=== PATIENT | male | born 1950 | race Hispanic/Latino ===

== ENCOUNTER 2024-07-11 13:51 | Inpatient (IN) | payer MEDICARE ==
[~2024-07-11] VITALS: Ht 170.2 cm; Wt 92.6 kg
--- NOTE | 2024-07-11 13:59 | ERN ---
General Chief Complaint: Chest Pain Stated Complaint: CP Time Seen by MD: 13:56 Source: patient History of Present Illness Initial Comments PATIENT IS A 73-YEAR-OLD MALE COMING IN TO BE EVALUATED FOR CHEST PAIN. PATIENT WAS EVALUATED AT PCP AND WAS SENT IN FOR FURTHER EVALUATION CONCERNS WERE THAT PATIENT MIGHT BE HAVING A STEMI. Allergies: Coded Allergies: nickel (Unverified Allergy, Unknown, 07/11/24) ROS Dictation CONSTITUTIONAL: NO CHILLS, NO FEVER, NO WEAKNESS, NO DIAPHORESIS, NO MALAISE. HEAD/FACE: NO SIGNS OF TRAUMA. EENT: NO EYE PAIN, NO BLURRED VISION, NO TEARING, NO DOUBLE VISION, NO EAR PAIN, NO EAR DISCHARGE, NO NOSE PAIN, NO NASAL CONGESTION, NO THROAT PAIN, NO THROAT SWELLING, NO MOUTH PAIN. RESPIRATORY: NO COUGH, NO ORTHOPNEA, NO SOB, NO STRIDOR, NO WHEEZING. CARDIOVASCULAR: NO CHEST PAIN, NO EDEMA, NO PALPITATIONS, NO SYNCOPE. GASTROINTESTINAL/ABDOMINAL: NO ABDOMINAL PAIN, NO CONSTIPATION, NO DIARRHEA, NO NAUSEA, NO VOMITING. GENITOURINARY: NO ABNORMAL DISCHARGE, NO DYSURIA, NO FREQUENT URINATION, NO HEMATURIA. NO COMPLAINTS OF PAIN IN THE GENITALS. MUSCULOSKELETAL: NO BACK PAIN, NO GOUT, NO JOINT PAIN, NO JOINT SWELLING, NO MUSCLE PAIN, NO MUSCLE STIFFNESS, NO NECK PAIN. INTEGUMENTARY: NO CHANGE IN COLOR, NO CHANGE IN HAIR/NAILS, NO DRYNESS, NO LESION, NO LUMPS, NO RASH. NEUROLOGICAL/PSYCH: NO ANXIETY, NOT DEPRESSED, NO EMOTIONAL PROBLEM, NO HEADACHE, NO NUMBNESS, NO PRE-EXISTING DEFICIT, NO HISTORY OF SEIZURES, NO TREMORS, NO WEAKNESS. HEMATOLOGIC/LYMPHATIC: NOT ANEMIC, NO HISTORY OF BLOOD CLOTS, NO APPARENT BLEEDING, NO BRUISING, GLANDS NOT SWOLLEN. ALL SYSTEMS NEGATIVE, EXCEPT NOTED. Physical Exam Physical Exam Dictation VITAL SIGNS: REVIEWED. GENERAL APPEARANCE: ALERT, ORIENTED X3, NO ACUTE DISTRESS, OBESE. HEAD AND FACE: NON-TRAUMATIC. EYES: PERRL, PINK CONJUNCTIVAS, EYELID NO TRAUMA, ANTERIOR CHAMBER CLEAR. EARS: PINNAS INTACT AND NO SIGNS OF TRAUMA OR ERYTHEMA. EAR CANALS CLEAR AND NO DISCHARGE. TMS NO ERYTHEMA. NOSE: NO DISCHARGE, NO BLEEDING. OROPHARYNX: MOUTH NORMAL, TEETH NO CARIES, TONGUE PINK. PHARYNX CLEAR, NO ERYTHEMA. TONSILS NO EXUDATES, NO ABSCESSES NOTED. MUCOUS MEMBRANE MOIST. NECK: SUPPLE, NON-TENDER, NO THYROMEGALY, NO MASSES, NO JVD, NO BRUITS. BREAST: DEFERRED. CHEST: NO TENDERNESS, NO CREPITUS, NO PARADOXICAL MOVEMENT, NO RETRACTIONS. LUNGS: CLEAR, WELL-VENTILATED, SYMMETRIC, NO RALES, NO WHEEZING, NO RHONCHI, NO STRIDOR, GOOD BREATH SOUNDS BILATERALLY. HEART: REGULAR RATE, REGULAR RHYTHM, NO MURMUR, NO GALLOPS. VASCULAR: NO PERIPHERAL EDEMA. ABDOMEN: SOFT, POSITIVE BOWEL SOUNDS, NONDISTENDED, NO GUARDING, NONTENDER, NO REBOUND, NO MASSES NO HEPATOMEGALY, NO SPLENOMEGALY, NO BOCANEGRA'S SIGN, NO HERNIAS. RECTAL: DEFERRED. GENITAL: DEFERRED. NEUROLOGICAL: NORMAL SPEECH, GROSS MOTOR FUNCTION INTACT, GROSS SENSORY FUNCTION INTACT. MUSCULOSKELETAL: NECK NONTENDER, FULL RANGE OF MOTION, BACK NONTENDER, FULL RANGE OF MOTION. EXTREMITIES: NONTENDER, FULL RANGE OF MOTION. SKIN: COLOR PINK, DRY, NO TURGOR, NO RASH, NO LACERATIONS, NO ABRASIONS, NO CONTUSIONS. LYMPHATICS: DEFERRED. Results Laboratory and Microbiology Lab and Micro Result Laboratory Tests Test 07/11/24 14:11 07/11/24 14:30 07/11/24 15:43 White Blood Count 8.3 K/uL (4.8-10.8) Red Blood Count 4.47 MIL/uL (4.50-6.20) L Hemoglobin 14.4 g/dL (14.0-18.0) Hematocrit 43.4 % (42-54) Mean Corpuscular Volume 97.1 fL (79-99) Mean Corpuscular Hemoglobin 32.2 pg (27.0-33.0) Mean Corpuscular Hemoglobin Concent 33.2 g/dL (32.0-36.0) Red Cell Distribution Width 13.2 % (11.0-15.5) Platelet Count 176 K/uL (130-400) Mean Platelet Volume 9.8 fL (7.5-10.5) Immature Granulocyte % (Auto) 0.6 % (0-1) Neutrophils (%) (Auto) 65.0 % (40.0-77.0) Lymphocytes (%) (Auto) 13.4 % (21.0-51.0) L Monocytes (%) (Auto) 11.6 % (3.0-13.0) Eosinophils (%) (Auto) 8.7 % (0.0-8.0) H Basophils (%) (Auto) 0.7 % (0.0-5.0) Neutrophils # (Auto) 5.4 K/uL (1.8-7.7) Lymphocytes # (Auto) 1.1 K/uL (1.0-4.8) Monocytes # (Auto) 1.0 K/uL (0.1-1.0) Eosinophils # (Auto) 0.72 K/uL (0.00-0.70) H Basophils # (Auto) 0.06 K/uL (0.00-0.20) Absolute Immature Granulocyte (auto 0.05 K/uL (0-1) Nucleated Red Blood Cells 0.0 % (0.0-0.19) Prothrombin Time 12.9 SEC (9.6-11.6) H Prothromb Time International Ratio 1.21 (0.85-1.15) H Activated Partial Thromboplast Time 29.5 SEC (26.3-35.5) Sodium Level 135 mmol/L (136-145) L Potassium Level 5.0 mmol/L (3.5-5.1) Chloride Level 102 mmol/L (101-111) Carbon Dioxide Level 28 mmol/L (21-32) Blood Urea Nitrogen 17 mg/dL (7-18) Creatinine 1.0 mg/dL (0.5-1.3) Glomerular Filtration Rate Calc 79 mL/min (>90) Random Glucose 104 mg/dL (70-105) Total Calcium 9.5 mg/dL (8.5-10.1) Magnesium Level 2.20 mg/dL (1.80-2.40) Total Creatine Kinase 54 U/L (21-232) Troponin I High Sensitivity 649 ng/L (4-75) *H 636 ng/L (4-75) *H B-Type Natriuretic Peptide 156 pg/mL (0-100) H Urine Color YELLOW (YELLOW) Urine Appearance CLEAR (CLEAR) Urine pH 6.5 (5.0-8.0) Urine Specific [place] 1.022 (1.001-1.031) Urine Protein NEGATIVE mg/dL (NEGATIVE) Urine Glucose (UA) NEGATIVE mg/dL (NEGATIVE) Urine Ketones NEGATIVE mg/dL (NEGATIVE) Urine Occult Blood NEGATIVE (NEGATIVE) Urine Nitrate NEGATIVE (NEGATIVE) Urine Bilirubin NEGATIVE mg/dL (NEGATIVE) Urine Urobilinogen 0.2 mg/dL (0.2-1.0) Urine Leukocyte Esterase NEGATIVE Paulette/uL Urine Opiates Screen NEGATIVE (NEGATIVE) Urine Barbiturates Screen NEGATIVE (NEGATIVE) Urine Phencyclidine Screen NEGATIVE (NEGATIVE) Urine Amphetamines Screen NEGATIVE (NEGATIVE) Urine Benzodiazepines Screen NEGATIVE (NEGATIVE) Urine Cocaine Screen NEGATIVE (NEGATIVE) Urine Marijuana (THC) Screen NEGATIVE (NEGATIVE) Labs Reviewed?: Yes EKG/XRAY/US/CT/MRI EKG Comment 07/11/2024 TIME 1:51 P.M. VENTRICULAR RATE 72 ATRIAL FIBRILLATION RIGHT BUNDLE-BRANCH BLOCK NO ST WAVE ELEVATION OR DEPRESSION MDM MDM: DIFFERENTIAL DIAGNOSIS: RATIONALE: TESTS CONSIDERED AND ORDERED SECONDARY TO SHARED DECISION MAKING INCLUDE: LABS, ECG AND RADIOLOGY PREVIOUS OUTSIDE RECORDS REVIEWED: OLD ER VISITS. RISK OF COMPLICATION AND/OR MORBIDITY OR MORTALITY OF PATIENT MANAGEMENT: NONE MEDICATIONS-PER MEDICATION RECONCILIATION NEED FOR HOSPITALIZATION: PATIENT DOES MEET CRITERIA FOR HOSPITALIZATION. NEED FOR EMERGENCY MAJOR/MINOR SURGERY: NO THERE ARE NO SOCIAL CONCERNS WITH THIS PATIENT. PRESCRIPTION DRUG MANAGEMENT PRESCRIPTIONS WILL INCLUDE SYMPTOMATIC CARE PATIENT'S PRIOR EXTERNAL MEDICAL RECORDS FROM OTHER ER VISITS WERE REVIEWED BY ME INDICATED. PRIOR TESTING AND RESULTS FROM PREVIOUS VISITS WERE REVIEWED. PRIOR TESTS WERE TAKEN INTO ACCOUNT WITH MEDICAL DECISION MAKING AND RESOURCE UTILIZATION, INDEPENDENT HISTORIAN/HISTORIANS WERE USED TO OBTAIN COMPLETE MEDICAL HISTORY. I INDEPENDENTLY INTERPRETED THE TEST THAT WERE PERFORMED, RESULTS WERE REVIEWED BY ME AND CONSIDERED FINDINGS ON RADIOLOGY IF ORDERED. MEDICAL MANAGEMENT AND EXAMINATION INTERPRETATION DISCUSSIONS WERE HAD BY ME WITH OTHER QUALIFIED HEALTHCARE PROFESSIONALS INDICATED FOR THE PATIENT'S CARE. ED Course Orders Procedure Category Date Status Time Cbc With Differential LAB 07/11/24 Complete 13:56 Prothrombin Time With LAB 07/11/24 Complete INR 13:56 B-Type Natriuretic LAB 07/11/24 Complete Peptide 13:56 Chest 1vw RAD 07/11/24 Resulted 13:56 12 Lead Ekg Tracing- EKG 07/11/24 Complete Technical 13:56 Magnesium LAB 07/11/24 Complete 13:56 Creatine Kinase, Total LAB 07/11/24 Complete 13:56 Troponin I High LAB 07/11/24 Complete Sensitivity 13:56 Urinalysis Profile LAB 07/11/24 Complete 13:56 Partial LAB 07/11/24 Complete Thromboplastin Time 13:56 Basic Metabolic Panel LAB 07/11/24 Complete 13:56 Drug Screen Urine LAB 07/11/24 Complete 13:56 Troponin I High LAB 07/11/24 Complete Sensitivity 15:25 Heparin 5,000 Unit PHA 07/11/24 In Process Vial (Heparin 5,000 U 16:30 Current Medications Medications (Trade) Dose Ordered Sig/Katherine Route PRN Reason Start Time Stop Time Status Last Admin Dose Admin Heparin Sodium (Porcine) (HEParin 5,000 UNIT VIAL) 5,000 unit ONCE SQ 07/11/24 16:30 08/10/24 16:29 Vital Signs Date Time Temp Pulse Resp B/P (MAP) Pulse Ox O2 Delivery O2 Flow Rate FiO2 07/11/24 14:19 97.2 85 18 146/70 99 Room Air* 0 21 07/11/24 13:56 98.6 80 16 135/70 Room Air 0 Critical Care Note Comments Critical Care Procedure Note Authorized and Performed by: me Total critical care time: Approximately 36 minutes Due to a high probability of clinically significant, life threatening deterioration, the patient required my highest level of preparedness to intervene emergently and I personally spent this critical care time directly and personally managing the patient. This critical care time included obtaining a history; examining the patient; pulse oximetry; ordering and review of studies; arranging urgent treatment with development of a management plan; evaluation of patient's response to treatment; frequent reassessment; and, discussions with other providers. This critical care time was performed to assess and manage the high probability of imminent, life-threatening deterioration that could result in multi-organ failure. It was exclusive of separately billable procedures and treating other patients and teaching time. Please see MDM section and the rest of the note for further information on patient assessment and treatment. DX & DISP Disposition: Inpatient Departure Impression: Primary Impression: NSTEMI (non-ST elevated myocardial infarction) Additional Impression: Chest pain Condition: Stable ELICEO MONTEJO MD Jul 11, 2024 13:59
[2024-07-11 14:20] LABS: BASOPHILS # (AUTO) 0.06 K/uL (0.00-0.20); BASOPHILS % (AUTO) 0.7 % (0.0-5.0); EOSINOPHILS # (AUTO) 0.72 K/uL (0.00-0.70); EOSINOPHILS % (AUTO) 8.7 % (0.0-8.0); HEMATOCRIT 43.4 % (42-54); IMMATURE GRANULOCYTE ABSOLUTE 0.05 K/uL (0-1); LYMPHOCYTES # (AUTO) 1.1 K/uL (1.0-4.8); LYMPHOCYTES % (AUTO) 13.4 % (21.0-51.0); MEAN CORPUSCULAR HEMOGLOBIN 32.2 pg (27.0-33.0); MEAN CORPUSCULAR HGB CONC 33.2 g/dL (32.0-36.0); MEAN CORPUSCULAR VOLUME 97.1 fL (79-99); MONOCYTES % (AUTO) 11.6 % (3.0-13.0); NEUTROPHILS # (AUTO) 5.4 K/uL (1.8-7.7); PLATELET COUNT (AUTO) 176 K/uL (130-400); RED BLOOD CELL COUNT(AUTO) 4.47 MIL/uL (4.50-6.20); RED CELL DISTRIBUTION WIDTH 13.2 % (11.0-15.5); WHITE BLOOD COUNT (AUTO) 8.3 K/uL (4.8-10.8)
[2024-07-11 14:38] LABS: B-TYPE NATRIURETIC PEPTIDE 156 pg/mL (0-100)
[2024-07-11 14:43] LABS: APPEARANCE,URINE CLEAR (CLEAR); BILIRUBIN,URINE NEGATIVE (NEGATIVE); COLOR,URINE YELLOW (YELLOW); GLUCOSE, URINE (UA) NEGATIVE (NEGATIVE); KETONES,URINE NEGATIVE (NEGATIVE); LEUKOCYTE ESTERASE ,URINE NEGATIVE Leu/uL (NEGATIVE); NITRATE,URINE NEGATIVE (NEGATIVE); OCCULT BLOOD,URINE NEGATIVE (NEGATIVE); PH,URINE 6.5 (5.0-8.0); PROTEIN,URINE NEGATIVE (NEGATIVE); UROBILINOGEN,URINE 0.2 mg/dL (0.2-1.0)
[2024-07-11 14:44] LABS: ADD UA MICROSCOPIC NO
[2024-07-11 14:44] LABS: INR 1.21 (0.85-1.15); PROTHROMBIN TIME 12.9 SEC (9.6-11.6)
[2024-07-11 14:45] LABS: PARTIAL THROMBOPLASTIN TIME 29.5 SEC (26.3-35.5)
[2024-07-11 14:45] LABS: AMPHET/METH SCREEN,URINE NEGATIVE (NEGATIVE); BARBITURATE SCREEN, URINE NEGATIVE (NEGATIVE); BENZODIAZEPINES SCREEN,URINE NEGATIVE (NEGATIVE); CANNABINOID SCREEN,URINE NEGATIVE (NEGATIVE); COCAINE SCREEN,URINE NEGATIVE (NEGATIVE); OPIATE SCREEN,URINE NEGATIVE (NEGATIVE); PHENCYCLIDINE SCREEN,URINE NEGATIVE (NEGATIVE)
[2024-07-11 14:48] LABS: MAGNESIUM 2.2 mg/dL (1.80-2.40)
--- NOTE | 2024-07-11 14:55 | HMCIMG ---
CHEST 1VW HISTORY: Chest pain COMPARISON: None FINDINGS: A frontal projection of the chest was obtained. No acute pulmonary infiltrates is seen. The heart is normal in size. Prominent interstitial markings are seen. No evidence of aortic calcification is seen. IMPRESSION: 1. No acute pulmonary infiltrate is seen.
--- NOTE | 2024-07-11 15:07 | EKG ---
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
[2024-07-11] MEDS ORDERED: acetaMINOPHEN 325 MG TAB PO PRN (16:30)
[2024-07-11] MEDS ORDERED: ondanSETRON 4MG INJ IVP PRN (16:30)
[2024-07-11] MEDS: HEParin 5,000 UNIT VIAL SQ SCH (16:37)
--- NOTE | 2024-07-11 16:46 | HP ---
[facility] Date of Service: Jul 11, 2024 Time of Service: 16:33 HISTORY OF PRESENT ILLNESS: [ ] THIS IS A 73-YEAR-OLD MALE THAT PRESENTS IN ER WITH CHIEF COMPLAINTS OF CHEST PAIN THAT HAPPENED 3-4 DAYS AGO SEVERITY WAS MODERATE; LOCATION: ACROSS IS CHEST WALL; DECRIBE TIGHTNESS ACROSS HIS CHEST WALL. DENIES SHORTNESS A BREATH DIZZINESS LIGHT HEADINESS. PATIENT REPORTS HE WENT TO PAY A MONITOR: READING SHOWN A FIB RHYTHM, PATIENT REPORTS HE WAS DIAGNOSED OF 10 YEARS AGO HAD ACARDIOVERSION THEREAFTER HES HAS SINUS RHYTHM WITH RATE CONTROLLED WITH MEDICATIONS, PATIENT REPORTS WAS ON AMIODARONE WAS TAKEN OFF SIX MONTHS DUE AGO AND WAS STARTED ON CARVEDILOL 12.5 TWICE A DAY. PATIENT IS A [place] VISITS [facility] THREE MONTHS OUT OF THE YEAR. PAST MEDICAL HISTORY CONGESTIVE HEART FAILURE. PATIENT'S TROPONIN ELEVATED 642 2nd 636 PATIENT GOT A BOLUS OF HEPARIN IN ER. WE WILL RESUME HOME MEDICATIONS CARVEDILOL 12.5 MG P.O. B.I.D. ATORVASTATIN 20 MG AT BEDTIME SPIRONOLACTONE 50 MG P.O. DAILY. the patient was seen and examied with DR Hightower: patient reports no chest pain at present time. we will do further cardiac workup and follow advertising sales representative recommendations. REVIEW OF SYSTEMS CONSTITUTIONAL: Denies fevers, chills, or night sweats. No unintentional weight loss reported. NEUROLOGICAL: Denies headache, amaurosis fugax, motor weakness, sensory deficit, vertigo/spinning sensation, gait abnormalities, or tremors. ENT: No hearing loss, otalgia, otorrhea, rhinitis, rhinorrhea, hoarseness, or sore throat. CARDIOVASCULAR: Denies any exertional angina, dyspnea on exertion, orthopnea, paroxysmal nocturnal dyspnea, palpitations, life-threatening arrhythmias, claudication. PULMONARY: Denies any shortness of breath, cough, phlegm/sputum, hemoptysis, pleuritic chest pain. SLEEP: Denies morning headaches, daytime somnolence or napping. Denies difficulty falling asleep, staying asleep, waking from sleep. Denies knowledge of snoring. GASTROINTESTINAL: Denies any type of dysphagia to either liquids or solids. Denies nausea, vomiting, pyrosis, early satiety, abdominal pain, diarrhea, constipation, or changes in stool consistency or caliber. Denies coffee-ground emesis, hematemesis, hematochezia, or melanotic stools. GENITOURINARY: Denies frequency, urgency, nocturia, hematuria or incontinence (Storage/Irritative symptoms.) Low urinary stream, straining to void, urinary intermittency or hesitancy, splitting of the voiding stream, terminal dribbling. ENDOCRINOLOGIC: Denies polyuria, polydipsia, polyphagia or heat/cold intolerances. HEMATOLOGIC: Denies thrombophilia/previous clots, or coagulopathy/bleeding disorders. ONCOLOGIC: Denies personal history of malignancy. DERMATOLOGIC: Denies rashes or pruritus. PSYCHIATRIC: Denies any suicidal or homicidal ideation. Denies hallucinations. PAST MEDICAL HISTORY: [ ] REFER TO HPI PAST SURGICAL HISTORY: [ ] GASTRIC SLEEVE HAS LOST 70 LB. PAST SOCIAL HISTORY: [ ] EXERCISE ON A DAILY BASIS ABOUT [id number] STEPS PER DAY DENIES SMOKING TOBACCO PRODUCTS DRINKS ALCOHOL ON OCCASIONALLY TWO BEERS DAILY FAMILY HISTORY: [ ] NONCONTRIBUTORY Coded Allergies: nickel (Unverified Allergy, Unknown, 07/11/24) PHYSICAL EXAM GENERAL APPEARANCE: The patient is awake, alert, and oriented, in no acute cardiopulmonary distress. NEUROLOGICAL: Cranial nerves II-XII grossly intact. Motor is 5/5 in bilateral upper and lower extremities proximal to distal. No sensory deficits. HEENT: Face is symmetric. Pupils are equal and reactive. Extraocular movements are intact. NECK: Supple. No JVD. No thyromegaly. No submental, submandibular, pre- /postauricular, occipital or supraclavicular lymphadenopathy. CHEST: Normal chest expansion. No Telemetry. LUNGS: Absence of any rales, rhonchi or any wheezing. CARDIOVASCULAR: Regular. S1 and S2 normal. No appreciable rubs, murmurs or gallops. ABDOMEN: Soft, nontender, and nondistended. There is no rebound, voluntary guarding, or rigidity. : Deferred. No Lee. EXTREMITIES: Non-edematous and not cyanotic. No clubbing. Good capillary refill. SKIN: No skin breakdown. Vital Sign (Last 24 Hours) 07/11/24 14:19 Temp 97.2 Pulse 85 Resp 18 B/P (MAP) 146/70 Pulse Ox 99 O2 Delivery Room Air* O2 Flow Rate 0 FiO2 21 LABS: Laboratory: Test 07/11/24 15:43 07/11/24 14:30 07/11/24 14:11 Range/Units Troponin I High Sensitivity 636 *H 4-75 ng/L Urine Color YELLOW YELLOW Urine Appearance CLEAR CLEAR Urine pH 6.5 5.0-8.0 Urine Specific [place] 1.022 1.001-1.031 Urine Protein NEGATIVE NEGATIVE mg/dL Urine Glucose (UA) NEGATIVE NEGATIVE mg/dL Urine Ketones NEGATIVE NEGATIVE mg/dL Urine Occult Blood NEGATIVE NEGATIVE Urine Nitrate NEGATIVE NEGATIVE Urine Bilirubin NEGATIVE NEGATIVE mg/dL Urine Urobilinogen 0.2 0.2-1.0 mg/dL Urine Leukocyte Esterase NEGATIVE NEGATIVE Paulette/uL Urine Opiates Screen NEGATIVE NEGATIVE Urine Barbiturates Screen NEGATIVE NEGATIVE Urine Phencyclidine Screen NEGATIVE NEGATIVE Urine Amphetamines Screen NEGATIVE NEGATIVE Urine Benzodiazepines Screen NEGATIVE NEGATIVE Urine Cocaine Screen NEGATIVE NEGATIVE Urine Marijuana (THC) Screen NEGATIVE NEGATIVE White Blood Count 8.3 4.8-10.8 K/uL Red Blood Count 4.47 L 4.50-6.20 MIL/uL Hemoglobin 14.4 14.0-18.0 g/dL Hematocrit 43.4 42-54 % Mean Corpuscular Volume 97.1 79-99 fL Mean Corpuscular Hemoglobin 32.2 27.0-33.0 pg Mean Corpuscular Hemoglobin Concent 33.2 32.0-36.0 g/dL Red Cell Distribution Width 13.2 11.0-15.5 % Platelet Count 176 130-400 K/uL Mean Platelet Volume 9.8 7.5-10.5 fL Immature Granulocyte % (Auto) 0.6 0-1 % Neutrophils (%) (Auto) 65.0 40.0-77.0 % Lymphocytes (%) (Auto) 13.4 L 21.0-51.0 % Monocytes (%) (Auto) 11.6 3.0-13.0 % Eosinophils (%) (Auto) 8.7 H 0.0-8.0 % Basophils (%) (Auto) 0.7 0.0-5.0 % Neutrophils # (Auto) 5.4 1.8-7.7 K/uL Lymphocytes # (Auto) 1.1 1.0-4.8 K/uL Monocytes # (Auto) 1.0 0.1-1.0 K/uL Eosinophils # (Auto) 0.72 H 0.00-0.70 K/uL Basophils # (Auto) 0.06 0.00-0.20 K/uL Absolute Immature Granulocyte (auto 0.05 0-1 K/uL Nucleated Red Blood Cells 0.0 0.0-0.19 % Prothrombin Time 12.9 H 9.6-11.6 SEC Prothromb Time International Ratio 1.21 H 0.85-1.15 Activated Partial Thromboplast Time 29.5 26.3-35.5 SEC Sodium Level 135 L 136-145 mmol/L Potassium Level 5.0 3.5-5.1 mmol/L Chloride Level 102 101-111 mmol/L Carbon Dioxide Level 28 21-32 mmol/L Blood Urea Nitrogen 17 7-18 mg/dL Creatinine 1.0 0.5-1.3 mg/dL Glomerular Filtration Rate Calc 79 >90 mL/min Random Glucose 104 70-105 mg/dL Total Calcium 9.5 8.5-10.1 mg/dL Magnesium Level 2.20 1.80-2.40 mg/dL Total Creatine Kinase 54 21-232 U/L B-Type Natriuretic Peptide 156 H 0-100 pg/mL Current Medications Medications (Trade) Dose Ordered Sig/Katherine Route PRN Reason Start Time Stop Time Status Last Admin Dose Admin Heparin Sodium (Porcine) (HEParin 5,000 UNIT VIAL) 5,000 unit ONCE SQ 07/11/24 16:30 08/10/24 16:29 DIAGNOSTICS / RADIOLOGY: [ ] ASSESSMENT: Nstemi POA History afib on no anticoagulation therapy POA chronic problems: chronic CHF cardioversion: 2013 PLAN: admit: PCCU with Tele Consult: advertising sales representative DR Morley Test: Echo to evaluate LV function NSTEMI: IMITATED ACS PROTOCOL ASA 81 MG PO DAILY , ATORVASTATIN 20 MG PO HS AND resumed home medications: Coreg 12.5 MG BID and spirolactone 50 mg po karl fluid restriction: 1.5 liter daily strict I/O and daily weight NITROGLYCERIN 0.4 MG SUB L PRN LABS: CE: X2 , TSH, LIPID PANEL replace electrolytes to keep Mg > 2.0 K+> 4 PRN: MEDICATIONS TYLENOL 650 MG PO EVERY 4 HRS FOR FEVER ZOFRAN 4 MG IV EVERY 6 HRS FOR N/V HYDRALAZINE 5MG IV EVERY 4 HRS SYSTOLIC PRESSURE > 160 SUPPORTIVE MEASURES: DVT PPX, GI PPX ALL QUESTIONS ANSWERED TIME SPENT: > 35 MIN SUPERVISING MD: DR HIGHTOWER C/D ADVANCED CARE PLANNING 1. Which of the following were discussed? Hospice Care - Yes / No Therapeutic options - Yes / No Advance Directives - Yes / No Other discussions - 2. Discussed with who? 3. Voluntary nature of this service was explained to the patient? Yes / No 4. Amount of time spent - 5. Reviewed by Physician? (if this service was performed by NPP) Yes / No ATTESTATION BY PHYSICIAN I have seen and examined the patient. I reviewed the documentation, medical decision making, and treatment plan as noted by the mid-level provider above. I agree with the findings and plan of care. JUAN RAMON HIGHTOWER MD, ELIZABETH NP Jul 11, 2024 16:46
[2024-07-11] MEDS ORDERED: NITROGLYCERIN 0.4 MG SL TAB SL PRN (17:00)
[2024-07-11] MEDS ORDERED: atorVAStatin 10 MG TABLET PO SCH (21:00)
[2024-07-11] MEDS ORDERED: metoPROLOL tartRATE 25 MG TAB PO SCH (21:00)
[2024-07-11] MEDS: FAMOTIDINE 20MG TAB PO SCH (21:07)
[2024-07-11] MEDS: atorVAStatin 10 MG TABLET PO SCH (21:07)
[2024-07-11] MEDS: carVEDIlol 12.5 MG TABLET PO SCH (21:07)
[2024-07-11 21:45] VITALS: O2SAT 98
[2024-07-11 22:08] VITALS: BP 132/74; PULSE 91; RESP 18; TEMP 98.4
[2024-07-12] VITALS (7 sets, daily range): BP systolic 121–139; BP diastolic 65–83; PULSE 65–80; RESP 16–18; TEMP 97.8–98.2; O2SAT 98
[2024-07-12] MEDS ORDERED: SPIR50TA5 PO (05:44)
[2024-07-12] MEDS ORDERED: FURO20TA4 PO (05:44)
[2024-07-12] MEDS ORDERED: ASPI-1197 PO (05:44)
[2024-07-12] MEDS ORDERED: CARV6.25 PO (05:44)
[2024-07-12] MEDS ORDERED: AMIO200T44 PO (05:44)
[2024-07-12] MEDS ORDERED: ATOR20TA65 PO (05:44)
[2024-07-12] MEDS: SPIRONOLACTONE 25 MG TAB PO SCH (08:42)
[2024-07-12] MEDS: ASPIRIN 81MG CHEW TAB PO SCH (08:42)
--- NOTE | 2024-07-12 09:12 | EKG ---
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
--- NOTE | 2024-07-12 09:54 | CONS ---
[facility] CARDIOLOGY CONSULTATION REPORT Cardiology consultation note dictated for Luis Reyez MD Date Patient Seen: Jul 12, 2024 Requesting Physician: Luz Marina Mariee NP Reason for Consultation: NSTEMI History of Present Illness: This is [facility] 73[facility] with a past medical history of hypertension, unknown type of heart failure, paroxysmal atrial fibrillation s/p successful cardioversion approximately 10 years ago, chronic amiodarone treatment but discontinued 6m ago by the patient due to purple discoloration to BUE, cardiac stent to unknown artery greater than 15 years ago, exposure to agent orange in [place] and gastric sleeve surgery who presented to the ED by EMS after visiting the [facility] due to an abnormal EKG. Cardiology has been consulted for NSTEMI. Troponin levels of 649, 636, 637, and 598. No EKG in the chart, new one this morning demonstrated atrial fibrillation with a hr of 90bpm with an IVCD, no acute ischemia present. The patient stated on Thursday07/01/2024, as he rescued his dog from being attacked during their usual nightly walk, he felt adrenaline release as he rescued his dog. As he walked back home, he began to experience chest tightness across his chest. It did not radiate, and was constant with a 8/10 intensity at its max level that did decrease in intensity until bedtime, only accompanying symptom was shortness of breath. He attempted sodium bicarbonate to alleviate his symptoms but it did not help. There were no aggravating or relieving factors. The next morning, he did continue to experience the same chest tightness, but it resolved spontaneously within 30 minutes of waking. No more chest discomfort events since Thursday07/02/2024. Since that event, he has been experiencing intermittent anxiousness so he bought a cardio mobile which diagnosed him with atrial fibrillation. He called his primary meat carrier Dr. Christopher Boogie MD in [place], [place] to inform him of what had occurred and was sent an order to the local [facility] for an EKG. He was sent to the ED by the clinic due to his EKG which is not in the chart as well, he does remember being told he was in atrial fibrillation but there were additional abnormalities they believed needed to be addressed. The patient currently denies chest pain, chest pressure, palpitations, dizziness, dyspnea, diaphoresis, orthopnea, PND, nausea, vomiting, previous MIs, and atrial flutter. The patient states he has been told there was an electrical delay in his EKG before. Past Medical History As per HPI and summarized below Past Surgical History: Dental implants Gastric sleeve Right lower rib biopsy due to sarcoidosis Family History: The patient's mother had a heart murmur. The patient's father had lung cancer. Social History: The patient lives with his . Habits: The patient denies tobacco or illicit drug use but does admit to 2 beers a night. Home Meds: Amiodarone 200 mg daily Aspirin 81 mg daily Atorvastatin 20 mg daily Carvedilol 6.25 mg b.i.d. Spironolactone 50 mg daily Furosemide 20 mg p.o. every12 hours p.r.n. edema Current Meds: Current Medications Medications Dose Ordered Sig/Katherine Start Time Stop Time Status Last Admin Acetaminophen 650 mg Q4H PRN 07/11/24 16:30 08/10/24 16:29 Ondansetron HCl 4 mg Q6H PRN 07/11/24 16:30 08/10/24 16:29 Famotidine 20 mg BID 07/11/24 21:00 08/10/24 20:59 07/12/24 08:42 Aspirin 81 mg DAILY 07/12/24 09:00 08/11/24 08:59 07/12/24 08:42 Nitroglycerin 0.4 mg AD PRN 07/11/24 17:00 08/10/24 16:59 Carvedilol 12.5 mg BID 07/11/24 21:00 08/10/24 20:59 07/12/24 08:42 Spironolactone 50 mg DAILY 07/12/24 09:00 08/11/24 08:59 07/12/24 08:42 Atorvastatin Calcium 20 mg HS 07/12/24 21:00 08/10/24 20:59 Clopidogrel Bisulfate 300 mg ONCE ONCE 07/12/24 10:00 07/12/24 10:01 Clopidogrel Bisulfate 75 mg DAILY 07/13/24 09:00 08/12/24 08:59 Heparin Sodium/ Dextrose 250 ml @ 0 mls/hr PROTOCOL 07/12/24 10:00 08/11/24 09:59 Review of Systems: CONST: No fever, fatigue, or weight changes. EYES: No recent vision problems. ENT: No congestion, ear pain, or sore throat. C/V: No chest pain, palpitations, or edema. RESP: No cough, congestion, wheezing or shortness of breath. GI: No abdominal pain, nausea, vomiting, constipation, or diarrhea. : No incontinence or dysuria. SKIN: No rash. NEURO: No headache, focal numbness or weakness, dizziness, or seizures. PSYCH: No depression or anxiety. HEME: No abnormal bruising or bleeding. LYMPH: No swollen glands. Physical Examination: GENERAL: No acute distress. HEAD: Normal with no signs of head trauma. EYES: PERRLA, EOMI, conjunctiva and sclera normal. ENT: Hearing grossly intact, normal oropharynx. NECK: Supple without JVD. There is no tenderness, lymphadenopathy, or masses. No thyromegaly. Normal carotid upstrokes without bruits. LUNGS: Clear breath sounds bilaterally. No wheezes, or rhonchi. HEART: Irregularly irregular rate and rhythm. 2-3/6 ZACK heard at the 3rd ICS at the [facility] VASC: Peripheral pulses +2 bilaterally. Trace edema to BLE ABD: Bowel sounds normal, soft, nontender, no masses, no organomegaly. No audible bruits. : Not examined LYMPH: No lymphadenopathy noted. EXT: No clubbing, cyanosis or edema. SKIN: No rashes or lesions noted. NEURO: Awake, alert, and oriented x3. No focal sensory or strength deficits noted. Vital Signs (last 8hr) Date Time Temp Pulse Resp B/P (MAP) Pulse Ox O2 Delivery O2 Flow Rate FiO2 07/12/24 08:45 98 Room Air* 0 21 07/12/24 08:42 139/73 07/12/24 08:21 98.1 79 16 139/73 97 Room Air 07/12/24 04:16 98.2 76 18 123/65 96 Room Air Laboratory: Hematology Labs: Test 07/11/24 14:11 Range/Units White Blood Count 8.3 4.8-10.8 K/uL Red Blood Count 4.47 L 4.50-6.20 MIL/uL Hemoglobin 14.4 14.0-18.0 g/dL Hematocrit 43.4 42-54 % Mean Corpuscular Volume 97.1 79-99 fL Mean Corpuscular Hemoglobin 32.2 27.0-33.0 pg Mean Corpuscular Hemoglobin Concent 33.2 32.0-36.0 g/dL Red Cell Distribution Width 13.2 11.0-15.5 % Platelet Count 176 130-400 K/uL Mean Platelet Volume 9.8 7.5-10.5 fL Immature Granulocyte % (Auto) 0.6 0-1 % Neutrophils (%) (Auto) 65.0 40.0-77.0 % Lymphocytes (%) (Auto) 13.4 L 21.0-51.0 % Monocytes (%) (Auto) 11.6 3.0-13.0 % Eosinophils (%) (Auto) 8.7 H 0.0-8.0 % Basophils (%) (Auto) 0.7 0.0-5.0 % Neutrophils # (Auto) 5.4 1.8-7.7 K/uL Lymphocytes # (Auto) 1.1 1.0-4.8 K/uL Monocytes # (Auto) 1.0 0.1-1.0 K/uL Eosinophils # (Auto) 0.72 H 0.00-0.70 K/uL Basophils # (Auto) 0.06 0.00-0.20 K/uL Absolute Immature Granulocyte (auto 0.05 0-1 K/uL Nucleated Red Blood Cells 0.0 0.0-0.19 % Chemistry Labs: Test 07/12/24 03:27 07/11/24 15:43 07/11/24 14:11 Range/Units Troponin I High Sensitivity 598 *H 4-75 ng/L Thyroid Stimulating Hormone (TSH) 0.68 0.36-3.74 uIU/mL Sodium Level 135 L 136-145 mmol/L Potassium Level 5.0 3.5-5.1 mmol/L Chloride Level 102 101-111 mmol/L Carbon Dioxide Level 28 21-32 mmol/L Blood Urea Nitrogen 17 7-18 mg/dL Creatinine 1.0 0.5-1.3 mg/dL Glomerular Filtration Rate Calc 79 >90 mL/min Random Glucose 104 70-105 mg/dL Total Calcium 9.5 8.5-10.1 mg/dL Magnesium Level 2.20 1.80-2.40 mg/dL Total Creatine Kinase 54 21-232 U/L B-Type Natriuretic Peptide 156 H 0-100 pg/mL Coagulation Labs: Test 07/11/24 14:11 Range/Units Prothrombin Time 12.9 H 9.6-11.6 SEC Prothromb Time International Ratio 1.21 H 0.85-1.15 Activated Partial Thromboplast Time 29.5 26.3-35.5 SEC Diagnostics / Radiology: Impression and Plan: NSTEMI HTN Unknown type of heart failure Paroxysmal atrial fibrillation s/p successful cardioversion approximately 10 years ago Chronic amiodarone treatment but discontinued 6m ago by the patient due to purple discoloration to BUE Cardiac stent to unknown artery greater than 15 years ago Exposure to agent orange in [place] Gastric sleeve surgery NSTEMI Troponin levels of 649, 636, 637, and 598 EKG demonstrated atrial fibrillation with a hr of 90bpm with an IVCD, no acute ischemia present The patient stated on Thursday07/01/2024, as he rescued his dog from being at tacked during their usual nightly walk, he felt adrenaline release as he rescued his dog. As he walked back home, he began to experience chest tightness across his chest. It did not radiate, and was constant with a 8/10 intensity at its max level that did decrease in intensity until bedtime, only accompanying symptom was shortness of breath. He attempted sodium bicarbonate to alleviate his symptoms but it did not help. There were no aggravating or relieving factors. The next morning, he did continue to experience the same chest tightness, but it resolved spontaneously within 30 minutes of waking. No more chest discomfort events since Thursday07/02/2024. -Continue Aspirin 81mg daily, Atorvastatin 20mg daily, Carvedilol 6.25mg b.i.d. -Start Clopidogrel 300mg x1, then 75mg daily and a Heparin gtt x 48 hrs -Echocardiogram was done this morning to assess LV function, pending to be read -NPO after midnight, obtain consent for diagnostic left and or right heart catheterization with possible percutaneous transluminal coronary angioplasty and stenting by Dr. Mushtaq Reyez in AM Atrial fibrillation Currently rate controlled with hr in the 80's -Continue carvedilol 6.25mg BID -Continue Heparin gtt to aid in anticoagulation -Initiate oral DOAC prior to discharge [facility] Jul 12, 2024 09:54
[2024-07-12] MEDS: cloPIDOgrel 300MG TAB PO ONE (11:15)
--- NOTE | 2024-07-12 11:33 | PN ---
[facility] PROGRESS NOTE Date of Service: Jul 12, 2024 Time of Service: : SUBJECTIVE: 07/12 the patient has been seen and examined during my rounding, no acute events overnight, comfortably in bed, hemodynamically stable, BP 139/73, heart rate controlled at 79, afebrile, saturating normal on room air. He denies dizziness, no headache, no blurry vision, no chest pain, no shortness a breath, no nausea, no vomiting, no abdominal pain. No family members at bedside during my visit. REVIEW OF SYSTEMS CONSTITUTIONAL: Denies fevers, chills, or night sweats. No unintentional weight loss reported. NEUROLOGICAL: Denies headache, amaurosis fugax, motor weakness, sensory deficit, vertigo/spinning sensation, gait abnormalities, or tremors. ENT: No hearing loss, otalgia, otorrhea, rhinitis, rhinorrhea, hoarseness, or sore throat. CARDIOVASCULAR: Denies any exertional angina, dyspnea on exertion, orthopnea, paroxysmal nocturnal dyspnea, palpitations, life-threatening arrhythmias, claudication. PULMONARY: Denies any shortness of breath, cough, phlegm/sputum, hemoptysis, pleuritic chest pain. SLEEP: Denies morning headaches, daytime somnolence or napping. Denies difficulty falling asleep, staying asleep, waking from sleep. Denies knowledge of snoring. GASTROINTESTINAL: Denies any type of dysphagia to either liquids or solids. Denies nausea, vomiting, pyrosis, early satiety, abdominal pain, diarrhea, constipation, or changes in stool consistency or caliber. Denies coffee-ground emesis, hematemesis, hematochezia, or melanotic stools. GENITOURINARY: Denies frequency, urgency, nocturia, hematuria or incontinence (Storage/Irritative symptoms.) Low urinary stream, straining to void, urinary intermittency or hesitancy, splitting of the voiding stream, terminal dribbling. ENDOCRINOLOGIC: Denies polyuria, polydipsia, polyphagia or heat/cold intolerances. HEMATOLOGIC: Denies thrombophilia/previous clots, or coagulopathy/bleeding disorders. ONCOLOGIC: Denies personal history of malignancy. DERMATOLOGIC: Denies rashes or pruritus. PSYCHIATRIC: Denies any suicidal or homicidal ideation. Denies hallucinations. PHYSICAL EXAM GENERAL APPEARANCE: The patient is awake, alert, and oriented, in no acute cardiopulmonary distress. NEUROLOGICAL: Cranial nerves II-XII grossly intact. Motor is 5/5 in bilateral upper and lower extremities proximal to distal. No sensory deficits. HEENT: Face is symmetric. Pupils are equal and reactive. Extraocular movements are intact. NECK: Supple. No JVD. No thyromegaly. No submental, submandibular, pre- /postauricular, occipital or supraclavicular lymphadenopathy. CHEST: Normal chest expansion. No Telemetry. LUNGS: Absence of any rales, rhonchi or any wheezing. CARDIOVASCULAR: Regular. S1 and S2 normal. No appreciable rubs, murmurs or gallops. ABDOMEN: Soft, nontender, and nondistended. There is no rebound, voluntary guarding, or rigidity. : Deferred. No Lee. EXTREMITIES: Non-edematous and not cyanotic. No clubbing. Good capillary refill. SKIN: No skin breakdown. Vital Signs (last 8hr) Date Time Temp Pulse Resp B/P (MAP) Pulse Ox O2 Delivery O2 Flow Rate FiO2 07/12/24 08:45 98 Room Air* 0 21 07/12/24 08:42 139/73 07/12/24 08:21 98.1 79 16 139/73 97 Room Air 07/12/24 04:16 98.2 76 18 123/65 96 Room Air LABS: Laboratory: Test 07/12/24 10:15 07/12/24 03:27 07/11/24 15:43 07/11/24 14:30 Range/Units Activated Partial Thromboplast Time 29.1 26.3-35.5 SEC Troponin I High Sensitivity 598 *H 4-75 ng/L Thyroid Stimulating Hormone (TSH) 0.68 0.36-3.74 uIU/mL Urine Color YELLOW YELLOW Urine Appearance CLEAR CLEAR Urine pH 6.5 5.0-8.0 Urine Specific [place] 1.022 1.001-1.031 Urine Protein NEGATIVE NEGATIVE mg/dL Urine Glucose (UA) NEGATIVE NEGATIVE mg/dL Urine Ketones NEGATIVE NEGATIVE mg/dL Urine Occult Blood NEGATIVE NEGATIVE Urine Nitrate NEGATIVE NEGATIVE Urine Bilirubin NEGATIVE NEGATIVE mg/dL Urine Urobilinogen 0.2 0.2-1.0 mg/dL Urine Leukocyte Esterase NEGATIVE NEGATIVE Paulette/uL Urine Opiates Screen NEGATIVE NEGATIVE Urine Barbiturates Screen NEGATIVE NEGATIVE Urine Phencyclidine Screen NEGATIVE NEGATIVE Urine Amphetamines Screen NEGATIVE NEGATIVE Urine Benzodiazepines Screen NEGATIVE NEGATIVE Urine Cocaine Screen NEGATIVE NEGATIVE Urine Marijuana (THC) Screen NEGATIVE NEGATIVE Test 07/11/24 14:11 Range/Units White Blood Count 8.3 4.8-10.8 K/uL Red Blood Count 4.47 L 4.50-6.20 MIL/uL Hemoglobin 14.4 14.0-18.0 g/dL Hematocrit 43.4 42-54 % Mean Corpuscular Volume 97.1 79-99 fL Mean Corpuscular Hemoglobin 32.2 27.0-33.0 pg Mean Corpuscular Hemoglobin Concent 33.2 32.0-36.0 g/dL Red Cell Distribution Width 13.2 11.0-15.5 % Platelet Count 176 130-400 K/uL Mean Platelet Volume 9.8 7.5-10.5 fL Immature Granulocyte % (Auto) 0.6 0-1 % Neutrophils (%) (Auto) 65.0 40.0-77.0 % Lymphocytes (%) (Auto) 13.4 L 21.0-51.0 % Monocytes (%) (Auto) 11.6 3.0-13.0 % Eosinophils (%) (Auto) 8.7 H 0.0-8.0 % Basophils (%) (Auto) 0.7 0.0-5.0 % Neutrophils # (Auto) 5.4 1.8-7.7 K/uL Lymphocytes # (Auto) 1.1 1.0-4.8 K/uL Monocytes # (Auto) 1.0 0.1-1.0 K/uL Eosinophils # (Auto) 0.72 H 0.00-0.70 K/uL Basophils # (Auto) 0.06 0.00-0.20 K/uL Absolute Immature Granulocyte (auto 0.05 0-1 K/uL Nucleated Red Blood Cells 0.0 0.0-0.19 % Prothrombin Time 12.9 H 9.6-11.6 SEC Prothromb Time International Ratio 1.21 H 0.85-1.15 Sodium Level 135 L 136-145 mmol/L Potassium Level 5.0 3.5-5.1 mmol/L Chloride Level 102 101-111 mmol/L Carbon Dioxide Level 28 21-32 mmol/L Blood Urea Nitrogen 17 7-18 mg/dL Creatinine 1.0 0.5-1.3 mg/dL Glomerular Filtration Rate Calc 79 >90 mL/min Random Glucose 104 70-105 mg/dL Total Calcium 9.5 8.5-10.1 mg/dL Magnesium Level 2.20 1.80-2.40 mg/dL Total Creatine Kinase 54 21-232 U/L B-Type Natriuretic Peptide 156 H 0-100 pg/mL Current Medications Medications (Trade) Dose Ordered Sig/Katherine Route PRN Reason Start Time Stop Time Status Last Admin Dose Admin Acetaminophen (TYLenol 325MG TAB) 650 mg Q4H PRN PO TEMPERATURE GREATER THAN 101.5 07/11/24 16:30 08/10/24 16:29 Aspirin (Aspirin 81mg Chew Tab) 81 mg DAILY PO 07/12/24 09:00 08/11/24 08:59 07/12/24 08:42 81 MG Atorvastatin Calcium (LIPItor 10MG) 10 mg HS PO 07/11/24 21:00 07/11/24 17:07 DC Atorvastatin Calcium (LIPItor 10MG) 20 mg HS PO 07/11/24 21:00 07/12/24 07:52 DC 07/11/24 21:07 20 MG Atorvastatin Calcium (LIPItor 20MG) 20 mg HS PO 07/12/24 21:00 08/10/24 20:59 Carvedilol (Coreg 12.5MG) 12.5 mg BID PO 07/11/24 21:00 08/10/24 20:59 07/12/24 08:42 12.5 MG Clopidogrel Bisulfate (plaVIX 75MG) 75 mg DAILY PO 07/13/24 09:00 08/12/24 08:59 Famotidine (Pepcid 20mg Tab) 20 mg BID PO 07/11/24 21:00 08/10/24 20:59 07/12/24 08:42 20 MG Heparin Sodium (Porcine) (HEParin 5,000 UNIT VIAL) *calculation based on ACTUAL B... AD PRN IV HEPARIN PROTOCOL 07/12/24 11:30 08/11/24 11:29 Heparin Sodium (Porcine) (HEParin 5,000 UNIT VIAL) 5,000 unit ONCE SQ 07/11/24 16:30 07/12/24 07:51 DC 07/11/24 16:37 5,000 UNIT Heparin Sodium/ Dextrose 250 ml @ 0 mls/hr PROTOCOL IV 07/12/24 10:00 12/5/24 09:59 Metoprolol Tartrate (loprESSOR) 12.5 mg BID PO 07/11/24 21:00 07/11/24 17:07 DC Nitroglycerin (Nitrostat) 0.4 mg AD PRN SL CHEST PAIN 07/11/24 17:00 08/10/24 16:59 Ondansetron HCl (zoFRAN 4MG INJ) 4 mg Q6H PRN IVP NAUSEA/VOMITING 07/11/24 16:30 08/10/24 16:29 Spironolactone (Aldactone 25mg) 50 mg DAILY PO 07/12/24 09:00 08/11/24 08:59 07/12/24 08:42 50 MG DIAGNOSTICS / RADIOLOGY: [ ] CHEST 1VW HISTORY: Chest pain COMPARISON: None FINDINGS: A frontal projection of the chest was obtained. No acute pulmonary infiltrates is seen. The heart is normal in size. Prominent interstitial markings are seen. No evidence of aortic calcification is seen. IMPRESSION: 1. No acute pulmonary infiltrate is seen. ASSESSMENT: Nstemi POA History afib on no anticoagulation therapy POA chronic problems: chronic CHF cardioversion: 2013 PLAN: admit: PCCU with Tele Consult: prototype engineer manager DR Morley Test: Echo to evaluate LV function NSTEMI: IMITATED ACS PROTOCOL ASA 81 MG PO DAILY , ATORVASTATIN 20 MG PO HS AND resumed home medications: Coreg 12.5 MG BID and spirolactone 50 mg po karl fluid restriction: 1.5 liter daily strict I/O and daily weight NITROGLYCERIN 0.4 MG SUB L PRN LABS: CE: X2 , TSH, LIPID PANEL replace electrolytes to keep Mg > 2.0 K+> 4 PRN: MEDICATIONS TYLENOL 650 MG PO EVERY 4 HRS FOR FEVER ZOFRAN 4 MG IV EVERY 6 HRS FOR N/V HYDRALAZINE 5MG IV EVERY 4 HRS SYSTOLIC PRESSURE > 160 SUPPORTIVE MEASURES: DVT PPX, GI PPX Disposition: The patient remains admitted to the progressive care unit, continue ekg monitor. Patient to be started on heparin drip. Cardiology input noted and appreciated, echocardiogram requested. Further recommendations in terms of possible left heart catheterization to follow echo results. Follow a.m. labs. Plan of action discussed with the patient, all questions answered, agreed and understood the information provided. Total PCU time spent greater than 30 minutes. JUAN RAMON HIGHTOWER MD Jul 12, 2024 11:33
[2024-07-12] MEDS: HEParin 5,000 UNIT VIAL IV PRN (11:36)
[2024-07-12] MEDS: HEParin 25,000 UNITS/250ML D5W 250 ML IV SCH (11:36)
--- NOTE | 2024-07-12 11:37 | EKG ---
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 : 1950 Requested By: JUAN RAMON HIGHTOWER Order Number: [id number] Reading MD: Thomas Cherry Measurements Intervals Parkin Rate: 90 P: 0 PA: 0 QRS: -97 QRSD: 174 T: 79 QT: 448 QTc: 549 Interpretive Statements Atrial fibrillation IVCD, consider RBBB ST elevation secondary to IVCD Compared to ECG 07/11/2024 21:31:27 Intraventricular conduction delay now present Sinus rhythm no longer present Left anterior fascicular block no longer present Myocardial infarct finding no longer present Prolonged QT interval no longer present ST (T wave) deviation still present Electronically Signed On 07-14-2024 18:31:47 SKIN CARE CONSULTANT by Thomas Cherry Please click the below link to view image of tracing.
[2024-07-12] MEDS: atorVAStatin 20 MG TABLET PO SCH (20:36)
[2024-07-13] VITALS (13 sets, daily range): BP systolic 114–140; BP diastolic 70–94; PULSE 64–99; RESP 16–18; TEMP 97.8–98.7; O2SAT 96–97
[2024-07-13 05:35] LABS: HEMATOCRIT 44.6 % (42-54); MEAN CORPUSCULAR HEMOGLOBIN 31.9 pg (27.0-33.0); MEAN CORPUSCULAR VOLUME 96.7 fL (79-99); RED BLOOD CELL COUNT(AUTO) 4.61 MIL/uL (4.50-6.20); RED CELL DISTRIBUTION WIDTH 13.4 % (11.0-15.5); WHITE BLOOD COUNT (AUTO) 9.8 K/uL (4.8-10.8)
[2024-07-13 05:51] LABS: ALBUMIN 3.2 g/dL (3.5-5.0); BILIRUBIN,TOTAL 1.2 mg/dL (0.2-1.0); CREATININE 0.9 mg/dL (0.5-1.3); POTASSIUM 4.1 mmol/L (3.5-5.1); TOTAL PROTEIN, SERUM 6.2 g/dL (6.0-8.3)
[2024-07-13] MEDS: cloPIDOgrel 75MG TAB PO SCH (08:53)
[2024-07-13] MEDS ORDERED: HEParin 10,000 UNIT/10ML (1,000 UNIT/ML) VIAL ONE (10:08)
[2024-07-13] MEDS ORDERED: NITROGLYCERIN 50MG VIAL ONE (10:08)
[2024-07-13] MEDS ORDERED: IOHEXOL 350 MG/ML 100ML INFUS..BTL IV ONE ×2 (10:08→12:13)
[2024-07-13] MEDS ORDERED: HEParin-NS 1,000 UNIT/500 ML 1,000 ML IV ONE (10:08)
[2024-07-13] MEDS ORDERED: LIDOCAINE HCL 400MG/20ML VIAL ONE (10:08)
[2024-07-13] MEDS ORDERED: FENTanyl CITRate PF 50 MCG/1 ML 2ML VIAL ONE (10:37)
[2024-07-13] MEDS ORDERED: MIDAZOLAM HCL 1 MG/ML 2ML VIAL ONE (10:38)
--- NOTE | 2024-07-13 10:42 | HMCSR ---
APPROVED REPORT EXAM: Two-dimensional and M-mode echocardiogram with Doppler and color Doppler. INDICATION ICD: NSTEMI 2D Dimensions RVDd4.1 cmLVEF(%)4.4 (>50%)LVED Vol(simp.)140.0 mL IVSd1.4 (0.7-1.1cm)FS(%)2 %LVES Vol(simp.)80.5 mL LVDd4.9 (3.8-5.6cm)LA (2D)5.5 (1.6-4.0cm)LVEF(%, simp.)43 % PWd1.7 (0.7-1.1cm)Ao Root(2D)3.1 (2.0-3.7cm)LA ESV INDEX (4CH)47.40 mL/m2 IVSs1.7 cmLVOT diam2.3 (1.8-2.4cm)LA ESV INDEX (2CH)74.40 mL/m2 LVDs4.8 (2.5-4.0cm)LA ESV INDEX (BP)62.60 mL/m2 PWs2.0 cm M-Mode Dimensions EPSS2.3 cm LA (MM)5.8 (1.6-4.0cm) Ao Root(MM)3.0 (2.0-3.7cm) Aortic Valve AoV VTI0.5 mAo Mean GR20.0 mmHgLVOT VTI0.33 m RIDDHI (VMAX)2.6 cm2AVA (VTI) 2.6 cm2 Mitral Valve MV E Hphw732.8 cm/sDECEL Pzxh876 ms MV A Vmax46.6 cm/sP 1/2 T82 ms E/A ratio2.9MVA (PHT)2.7 cm2 MR Max PG103 mmHg TDI E/E' Cvqioe77.5E/E' Kjhoblv36.7 Medial E' Peak V4.60 cm/sLateral E' Peak V6.90 cm/s Tricuspid Valve TR Vmax3.6 m/s TR Peak GR52.9 mmHg Left Ventricle The left ventricle is normal in size. 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 The mid/api victorina inferior wall is hypokinetic. The other wall segments including the anterior, anterolateral, infe rolateral, anteroseptal and inferoseptal cota are hypokinetic. Severe concentric left ventricular hy pertrophy. Left ventricle systolic function is rpwv-wj-ylwoqmdojj depressed, estimated LVEF 40-45%. S tage III, diastolic dysfunction. Right Ventricle The right ventricle is dilated. The right ventricular systolic function is normal, TAPSE 17 mm. Atria The left atrium is severely dilated. LASVI 74mL/m. The right atrium is dilated. Aortic Valve Aortic valve is probably trileaflet. The leaflets are moderately thickened and calcified. There is re stricted excursion of the right and non coronary leaflets. Trace aortic regurgitation. Moderate aorti c stenosis, peak velocity 2.8 m/sec mean gradient 20 mm Hg. Mitral Valve Mild mitral annular calcification is noted. The leaflets are mildly thickened and calcified. Trace mi tral regurgitation. There is no mitral valve stenosis. Tricuspid Valve The tricuspid valve leaflets appear normal. Severe tricuspid regurgitation. RVSP is 53 mmHg. Pulmonic Valve Pulmonic valve is not well visualized. Great Vessels The aortic root is normal in size. The IVC is normal in size and collapses >50% with inspiration. Pericardium No pericardial effusion. Other Information Quality : Fair Conclusion The left atrium is severely dilated. LASVI 74mL/m. The right atrium is dilated. The right ventricle is dilated. Severe concentric left ventricular hypertrophy. 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 The mid/apical inferior wall is hypokinetic. Th e other wall segments including the anterior, anterolateral, inferolateral, anteroseptal and inferose ptal cota are hypokinetic. Left ventricle systolic function is dwbs-bd-oyknddresu depressed, estimated LVEF 40-45%. Stage III, diastolic dysfunction. Moderate aortic stenosis, peak velocity 2.8 m/sec mean gradient 20 mm Hg. Trace aortic regurgitation. Trace mitral regurgitation. Severe tricuspid regurgitation. PASP is 56 mmHg. No pericardial effusion.
[2024-07-13] MEDS ORDERED: cloPIDOgrel 300MG TAB ONE (11:22)
--- NOTE | 2024-07-13 11:25 | PN ---
[facility] PROGRESS NOTE Date of Service: Jul 13, 2024 Time of Service: : SUBJECTIVE: 07/12 the patient has been seen and examined during my rounding, no acute events overnight, comfortably in bed, hemodynamically stable, BP 139/73, heart rate controlled at 79, afebrile, saturating normal on room air. He denies dizziness, no headache, no blurry vision, no chest pain, no shortness a breath, no nausea, no vomiting, no abdominal pain. No family members at bedside during my visit. 07/13 the patient has been seen and examined during my rounding, no acute events overnight, comfortably in bed, hemodynamically stable, heart rate controlled at 79, afebrile, saturating normal on room air. He denies dizziness, no headache, no blurry vision, no chest pain, no shortness a breath, no nausea, no vomiting, no abdominal pain. No family members at bedside during my visit. REVIEW OF SYSTEMS CONSTITUTIONAL: Denies fevers, chills, or night sweats. No unintentional weight loss reported. NEUROLOGICAL: Denies headache, amaurosis fugax, motor weakness, sensory deficit, vertigo/spinning sensation, gait abnormalities, or tremors. ENT: No hearing loss, otalgia, otorrhea, rhinitis, rhinorrhea, hoarseness, or sore throat. CARDIOVASCULAR: Denies any exertional angina, dyspnea on exertion, orthopnea, paroxysmal nocturnal dyspnea, palpitations, life-threatening arrhythmias, claudication. PULMONARY: Denies any shortness of breath, cough, phlegm/sputum, hemoptysis, pleuritic chest pain. SLEEP: Denies morning headaches, daytime somnolence or napping. Denies difficulty falling asleep, staying asleep, waking from sleep. Denies knowledge of snoring. GASTROINTESTINAL: Denies any type of dysphagia to either liquids or solids. Denies nausea, vomiting, pyrosis, early satiety, abdominal pain, diarrhea, constipation, or changes in stool consistency or caliber. Denies coffee-ground emesis, hematemesis, hematochezia, or melanotic stools. GENITOURINARY: Denies frequency, urgency, nocturia, hematuria or incontinence (Storage/Irritative symptoms.) Low urinary stream, straining to void, urinary intermittency or hesitancy, splitting of the voiding stream, terminal dribbling. ENDOCRINOLOGIC: Denies polyuria, polydipsia, polyphagia or heat/cold intolerances. HEMATOLOGIC: Denies thrombophilia/previous clots, or coagulopathy/bleeding disorders. ONCOLOGIC: Denies personal history of malignancy. DERMATOLOGIC: Denies rashes or pruritus. PSYCHIATRIC: Denies any suicidal or homicidal ideation. Denies hallucinations. PHYSICAL EXAM GENERAL APPEARANCE: The patient is awake, alert, and oriented, in no acute cardiopulmonary distress. NEUROLOGICAL: Cranial nerves II-XII grossly intact. Motor is 5/5 in bilateral upper and lower extremities proximal to distal. No sensory deficits. HEENT: Face is symmetric. Pupils are equal and reactive. Extraocular movements are intact. NECK: Supple. No JVD. No thyromegaly. No submental, submandibular, pre- /postauricular, occipital or supraclavicular lymphadenopathy. CHEST: Normal chest expansion. No Telemetry. LUNGS: Absence of any rales, rhonchi or any wheezing. CARDIOVASCULAR: Regular. S1 and S2 normal. No appreciable rubs, murmurs or gallops. ABDOMEN: Soft, nontender, and nondistended. There is no rebound, voluntary guarding, or rigidity. : Deferred. No Lee. EXTREMITIES: Non-edematous and not cyanotic. No clubbing. Good capillary refill. SKIN: No skin breakdown. Vital Signs (last 8hr) Date Time Temp Pulse Resp B/P (MAP) Pulse Ox O2 Delivery O2 Flow Rate FiO2 07/13/24 08:53 136/94 07/13/24 07:44 98.8 88 16 136/94 96 Room Air 07/13/24 03:56 98.1 64 18 140/85 98 Room Air LABS: Laboratory: Test 07/13/24 05:23 07/12/24 03:27 07/11/24 15:43 07/11/24 14:30 Range/Units White Blood Count 9.8 4.8-10.8 K/uL Red Blood Count 4.61 4.50-6.20 MIL/uL Hemoglobin 14.7 14.0-18.0 g/dL Hematocrit 44.6 42-54 % Mean Corpuscular Volume 96.7 79-99 fL Mean Corpuscular Hemoglobin 31.9 27.0-33.0 pg Mean Corpuscular Hemoglobin Concent 33.0 32.0-36.0 g/dL Red Cell Distribution Width 13.4 11.0-15.5 % Platelet Count 161 130-400 K/uL Mean Platelet Volume 9.5 7.5-10.5 fL Nucleated Red Blood Cells 0.0 0.0-0.19 % Activated Partial Thromboplast Time 118.1 *H 26.3-35.5 SEC Sodium Level 137 136-145 mmol/L Potassium Level 4.1 3.5-5.1 mmol/L Chloride Level 103 101-111 mmol/L Carbon Dioxide Level 24 21-32 mmol/L Blood Urea Nitrogen 11 7-18 mg/dL Creatinine 0.9 0.5-1.3 mg/dL Glomerular Filtration Rate Calc 90 >90 mL/min Random Glucose 102 70-105 mg/dL Total Calcium 8.7 8.5-10.1 mg/dL Magnesium Level 2.00 1.80-2.40 mg/dL Total Bilirubin 1.2 H 0.2-1.0 mg/dL Aspartate Amino Transf (AST/SGOT) 23 10-37 U/L Alanine Aminotransferase (ALT/SGPT) 29 12-78 U/L Alkaline Phosphatase 99 50-136 U/L Total Protein 6.2 6.0-8.3 g/dL Albumin 3.2 L 3.5-5.0 g/dL Troponin I High Sensitivity 598 *H 4-75 ng/L Thyroid Stimulating Hormone (TSH) 0.68 0.36-3.74 uIU/mL Urine Color YELLOW YELLOW Urine Appearance CLEAR CLEAR Urine pH 6.5 5.0-8.0 Urine Specific [place] 1.022 1.001-1.031 Urine Protein NEGATIVE NEGATIVE mg/dL Urine Glucose (UA) NEGATIVE NEGATIVE mg/dL Urine Ketones NEGATIVE NEGATIVE mg/dL Urine Occult Blood NEGATIVE NEGATIVE Urine Nitrate NEGATIVE NEGATIVE Urine Bilirubin NEGATIVE NEGATIVE mg/dL Urine Urobilinogen 0.2 0.2-1.0 mg/dL Urine Leukocyte Esterase NEGATIVE NEGATIVE Paulette/uL Urine Opiates Screen NEGATIVE NEGATIVE Urine Barbiturates Screen NEGATIVE NEGATIVE Urine Phencyclidine Screen NEGATIVE NEGATIVE Urine Amphetamines Screen NEGATIVE NEGATIVE Urine Benzodiazepines Screen NEGATIVE NEGATIVE Urine Cocaine Screen NEGATIVE NEGATIVE Urine Marijuana (THC) Screen NEGATIVE NEGATIVE Test 07/11/24 14:11 Range/Units Immature Granulocyte % (Auto) 0.6 0-1 % Neutrophils (%) (Auto) 65.0 40.0-77.0 % Lymphocytes (%) (Auto) 13.4 L 21.0-51.0 % Monocytes (%) (Auto) 11.6 3.0-13.0 % Eosinophils (%) (Auto) 8.7 H 0.0-8.0 % Basophils (%) (Auto) 0.7 0.0-5.0 % Neutrophils # (Auto) 5.4 1.8-7.7 K/uL Lymphocytes # (Auto) 1.1 1.0-4.8 K/uL Monocytes # (Auto) 1.0 0.1-1.0 K/uL Eosinophils # (Auto) 0.72 H 0.00-0.70 K/uL Basophils # (Auto) 0.06 0.00-0.20 K/uL Absolute Immature Granulocyte (auto 0.05 0-1 K/uL Prothrombin Time 12.9 H 9.6-11.6 SEC Prothromb Time International Ratio 1.21 H 0.85-1.15 Total Creatine Kinase 54 21-232 U/L B-Type Natriuretic Peptide 156 H 0-100 pg/mL Current Medications Medications (Trade) Dose Ordered Sig/Katherine Route PRN Reason Start Time Stop Time Status Last Admin Dose Admin Acetaminophen (TYLenol 325MG TAB) 650 mg Q4H PRN PO TEMPERATURE GREATER THAN 101.5 07/11/24 16:30 08/10/24 16:29 Aspirin (Aspirin 81mg Chew Tab) 81 mg DAILY PO 07/12/24 09:00 08/11/24 08:59 07/13/24 08:53 81 MG Atorvastatin Calcium (LIPItor 10MG) 10 mg HS PO 07/11/24 21:00 07/11/24 17:07 DC Atorvastatin Calcium (LIPItor 10MG) 20 mg HS PO 07/11/24 21:00 07/12/24 07:52 DC 07/11/24 21:07 20 MG Atorvastatin Calcium (LIPItor 20MG) 20 mg HS PO 07/12/24 21:00 08/10/24 20:59 07/12/24 20:36 20 MG Carvedilol (Coreg 12.5MG) 12.5 mg BID PO 07/11/24 21:00 08/10/24 20:59 07/13/24 08:53 12.5 MG Clopidogrel Bisulfate (plaVIX 75MG) 75 mg DAILY PO 07/13/24 09:00 08/12/24 08:59 07/13/24 08:53 75 MG Famotidine (Pepcid 20mg Tab) 20 mg BID PO 07/11/24 21:00 08/10/24 20:59 07/13/24 08:53 20 MG Heparin Sodium (Porcine) (HEParin 5,000 UNIT VIAL) *calculation based on ACTUAL B... AD PRN IV HEPARIN PROTOCOL 07/12/24 11:30 08/11/24 11:29 07/12/24 11:36 7,000 UNIT Heparin Sodium (Porcine) (HEParin 5,000 UNIT VIAL) 5,000 unit ONCE SQ 07/11/24 16:30 07/12/24 07:51 DC 07/11/24 16:37 5,000 UNIT Heparin Sodium/ Dextrose 250 ml @ 0 mls/hr PROTOCOL IV 07/12/24 10:00 08/11/24 09:59 07/13/24 05:56 12.2 MLS/HR Metoprolol Tartrate (loprESSOR) 12.5 mg BID PO 07/11/24 21:00 07/11/24 17:07 DC Nitroglycerin (Nitrostat) 0.4 mg AD PRN SL CHEST PAIN 07/11/24 17:00 08/10/24 16:59 Ondansetron HCl (zoFRAN 4MG INJ) 4 mg Q6H PRN IVP NAUSEA/VOMITING 07/11/24 16:30 08/10/24 16:29 Spironolactone (Aldactone 25mg) 50 mg DAILY PO 07/12/24 09:00 08/11/24 08:59 07/13/24 08:50 50 MG DIAGNOSTICS / RADIOLOGY: [ ] ASSESSMENT: Nstemi POA History afib on no anticoagulation therapy POA Severe concentric left ventricular hypertrophy 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% Moderate aortic stenosis Stage III diastolic dysfunction 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 Severe tricuspid regurgitation chronic problems: chronic CHF cardioversion: 2013 PLAN: admit: PCCU with Tele Consult: ear nose throat physician DR Morley Test: Echo to evaluate LV function NSTEMI: IMITATED ACS PROTOCOL ASA 81 MG PO DAILY , ATORVASTATIN 20 MG PO HS AND resumed home medications: Coreg 12.5 MG BID and spirolactone 50 mg po karl fluid restriction: 1.5 liter daily strict I/O and daily weight NITROGLYCERIN 0.4 MG SUB L PRN LABS: CE: X2 , TSH, LIPID PANEL replace electrolytes to keep Mg > 2.0 K+> 4 PRN: MEDICATIONS TYLENOL 650 MG PO EVERY 4 HRS FOR FEVER ZOFRAN 4 MG IV EVERY 6 HRS FOR N/V HYDRALAZINE 5MG IV EVERY 4 HRS SYSTOLIC PRESSURE > 160 SUPPORTIVE MEASURES: DVT PPX, GI PPX Disposition: The patient remains admitted to the progressive care unit, continue nuclear monitoring technician. Patient remains on heparin drip. Echocardiogram reviewed severe concentric left ventricular hypertrophy, basal inferior wall is aneurysmal and akinetic, mid/apical inferior wall hypokinetic, LVEF 40-45%. Moderate aortic stenosis. Patient is scheduled for left heart catheterization today. Follow a.m. labs. Plan of action discussed with the patient, all questions answered, agreed and understood the information provided. Total PCU time spent greater than 30 minutes. JUAN RAMON HIGHTOWER MD Jul 13, 2024 11:25
[2024-07-13] MEDS: 0.9%NACL 1000ML 1,000 ML IV SCH (12:30)
--- NOTE | 2024-07-13 13:00 | PRN ---
PROCEDURE NOTE Indications: ACS-NSTEMI CAD status post PCI with SANTHOSH placement to the LAD Paroxysmal atrial fibrillation with RVR Left ventricle systolic dysfunction (LVEF 40-45% by echocardiogram done on 07/12/2024) Procedures: Coronary angiogram, PCI with balloon angioplasty, balloon lithotripsy, and SANTHOSH placement in the LAD, IVUS assessment of the LAD Introduction: After informed written consent was obtained, the patient was brought to the Catheterization Lab in the usual fasting state. Following sterile prep and drape, a time out was performed, then moderate sedation was administered, 1mg of Versed and 50mcg of Fentanyl, then 1% Lidocaine was infiltrated into the right femoral groin. Using a Modified Seldinger technique, a 6Fr Sheath was inserted into the right common femoral artery. While under fluoroscopic guidance, diagnostic coronary catheters were advanced over a wire into the central circulation where they were aspirated, flushed and placed to pressure monitoring, once the wire was removed. Coronary Angio: The left and right coronary arteries were engaged with appropriate catheters and angiography was performed under continuous pressure monitoring. Cardiac Findings: Right dominant system LM: Large caliber vessel with mild luminal irregularities. The vessel bifurcates into the LAD and LCX. LAD: Large caliber vessel with 80-90% stenosis in the proximal LAD. There is a patent stent in the mid LAD. There was 30% ISR seen within the stent. 40% stenosis in the mid to distal LAD. GHASSAN three blood flow distally Diagonal 1: Medium caliber vessel with mild luminal irregularities. Diagonal 2: Medium caliber vessel with mild luminal irregularities. LCx: Medium caliber vessel with 30% stenosis in the ostial and mid LCX. The rest of the vessel has mild luminal irregularities OM1: Medium caliber vessel with mild luminal irregularities. RCA: Large caliber vessel with diffuse 30% stenosis in the mid RCA. The rest of the vessel has mild luminal irregularities RPDA: Medium caliber vessel with mild luminal irregularities. RPLV: Medium caliber vessel with mild luminal irregularities Medications given: Versed 2mg, Fentanyl 25mcg, heparin 5000 units x 1 dose, clopidogrel 300 mg x 1 dose Coronary Intervention: Guide catheter: JL4 Guidewire: 0.014 run-through guidewire After reviewing the above-mentioned findings the decision was made to intervene on the LAD. The patient was administered heparin 75 units/kg and clopidogrel 300 mg x 1 dose. We then advanced the JL4 guide catheter and 0.014 run-through guidewire into the ostium of the left main. We then advanced the 0.014 run- through guidewire across the areas stenosis and into the distal LAD. We then performed balloon angioplasty (2.5 x 12 mm), balloon lithotripsy (shockwave 3.5 x 12 mm) in the proximal LAD. We then performed IVUS assessment of the LAD which appropriately sized the proximal LAD. We then performed successful SANTHOSH placement ([employer]onic torito [place] 3.5 x 15 mm) in the proximal LAD. The stent was post dilated with a 4.0 x 8 mm noncompliant balloon achieving optimal results. Repeat angiography then revealed a widely patent stent in the proximal LAD and GHASSAN three blood flow distally. The 0.014 run-through guidewire and JL4 guide catheter were then removed. The patient tolerated the procedure well and without issue. Complications: None Conscious Sedation Monitoring: Under my direct order and supervision, medication for moderate conscious sedation was administered by the nursing staff and the patients level of consciousness and physiological status was monitored by an independent trained nurse. Closure of Access Site: After the case completed the sheath was pulled and a 6Fr Angioseal was deployed in the right common femoral artery without complication. Conclusion: 1. ACS-NSTEMI: Culprit hiymzr-47-02% stenosis in the proximal LAD status post successful treatment with balloon angioplasty, balloon lithotripsy, and SANTHOSH placement ([employer]onic torito [place] 3.5 x 15 mm) in the proximal LAD. The stent was post dilated with a noncompliant balloon achieving optimal results. 2. Patent stent with 30% ISR in the mid LAD 3. Nonobstructive CAD (mid to distal LAD, ostial and mid LCX, and mid RCA) 4. Paroxysmal atrial fibrillation with RVR 5. Left ventricle systolic dysfunction (LVEF 40-45% by echocardiogram done on 07/12/2024) Recommendation: 1. Continue goal-directed medical therapy 2. Stop heparin IV drip. Start Xarelto 20 mg daily. The patient will continue on aspirin 81 mg daily and clopidogrel 75 mg daily. The patient will be on triple therapy for one month and then aspirin will be discontinued 3. Groin precautions 4. 4 hours of bedrest 5. Start NS at 100 mL/hour x3 hours 6. No driving for the next 48 hours 7. No heavy lifting or strenuous exercise for the next two weeks CRISELDA BRANHAM MD Jul 13, 2024 13:00
[2024-07-13] MEDS: RIVAROXABAN 20 MG TABLET PO SCH (18:03)
[2024-07-14 01:00] VITALS: BP 119/73; PULSE 85; RESP 18; TEMP 98.2
[2024-07-14 04:08] LABS: HEMATOCRIT 44.3 % (42-54); MEAN CORPUSCULAR HEMOGLOBIN 31.8 pg (27.0-33.0); MEAN CORPUSCULAR HGB CONC 32.3 g/dL (32.0-36.0); MEAN CORPUSCULAR VOLUME 98.7 fL (79-99); RED BLOOD CELL COUNT(AUTO) 4.49 MIL/uL (4.50-6.20); RED CELL DISTRIBUTION WIDTH 13.4 % (11.0-15.5); WHITE BLOOD COUNT (AUTO) 9.9 K/uL (4.8-10.8)
[2024-07-14 04:30] VITALS: BP 118/62; PULSE 64; RESP 18; TEMP 98
[2024-07-14 04:31] LABS: ALBUMIN 3.1 g/dL (3.5-5.0); BILIRUBIN,TOTAL 1.2 mg/dL (0.2-1.0); POTASSIUM 4.4 mmol/L (3.5-5.1); TOTAL PROTEIN, SERUM 6.1 g/dL (6.0-8.3)
[2024-07-14 07:00] VITALS: BP 131/71; PULSE 90; RESP 20; TEMP 98; O2SAT 94
[2024-07-14] MEDS ORDERED: ASPI-1005 PO (09:21)
[2024-07-14] MEDS ORDERED: SPIR25TA6 PO (09:21)
[2024-07-14] MEDS ORDERED: RIVA20TA PO (09:21)
[2024-07-14] MEDS ORDERED: NITR0.4T50 SL (09:21)
[2024-07-14] MEDS ORDERED: CARV12.580 PO (09:21)
[2024-07-14] MEDS ORDERED: CLOP-31 PO (09:21)
--- NOTE | 2024-07-14 09:55 | PN ---
Cardiology Progress Note Date of Service: 07/14/2024 Attending Bartacker: Dr. Luis Reyez Reason for Consult: ACS-NSTEMI Problem List: -ACS-NSTEMI: Culprit jofkqy-50-09% stenosis in the proximal LAD s/p successful PCI with PTCA, balloon lithotripsy, and SANTHOSH placement ([employer] torito [place] 3.5 x 15 mm) in the proximal LAD done on 07/13/[address] Luis Reyez -Residual nonobstructive CAD (patent stent with 30% ISR in the mid LAD, 40% stenosis in the mid-distal LAD, 30% stenosis in the ostial and mid LCX, and diffuse 30% stenosis in the mid RCA) identified on LHC done on 07/13/2024 -Paroxysmal atrial fibrillation/flutter with RVR -LV systolic dysfunction (LVEF: 40-45% by echo done 07/12/2024) -Moderate aortic stenosis (PV: 2.8 m/sec, M mmHg) by echo done 07/12/2024 -Pulmonary hypertension (PASP: 56 mmHg) -HTN -HLP -Hyperbilirubinemia -Obesity s/p gastric sleeve -Agent orange exposure Subjective: This is a 73y/o male who was seen and evaluated male who was seen and evaluated at the bedside today. The patient underwent successful PCI of the LAD yesterday by Dr. Reyez. The patient tolerated the procedure well and without issue. He denies any active complaints including chest pain, chest pressure, palpitations, or shortness of breath. As per the nurse, there were no overnight events. Vitals/Labs Vital Signs Date Time Temp Pulse Resp B/P (MAP) Pulse Ox O2 Delivery O2 Flow Rate FiO2 07/14/24 08:32 131/77 07/14/24 07:00 98.1 90 20 97 Room Air 07/13/24 19:30 0 21 General: Awake and alert x3. No acute distress. HEENT: Normocephalic, atraumatic. EOMI. Oral mucosa was moist. Neck: No masses, JVD, or carotid bruits. Lungs: No respiratory distress. SCM. Bilateral air entry. Clear to auscultation bilaterally. Cardio: Regular rate, irregular rhythm. Abdomen: Soft, nontender, nondistended. No organomegaly. Normoactive bowel sounds x 4 quadrants. Extremities. No edema, clubbing, or cyanosis. +2 pulses noted throughout. The right groin access site is soft to palpation and free of significant bleeding, bruising, or hematoma formation. Neuro: Cranial nerves II through XII are grossly intact. No obvious focal deficits identified. Laboratory Tests 07/14/24 03:34 Assessment: -ACS-NSTEMI: Culprit dhface-89-71% stenosis in the proximal LAD s/p successful PCI with PTCA, balloon lithotripsy, and SANTHOSH placement ([employer] torito [place] 3.5 x 15 mm) in the proximal LAD done on 07/13/[address] Luis Reyez -Residual nonobstructive CAD (patent stent with 30% ISR in the mid LAD, 40% stenosis in the mid-distal LAD, 30% stenosis in the ostial and mid LCX, and diffuse 30% stenosis in the mid RCA) identified on LHC done on 07/13/2024 -Paroxysmal atrial fibrillation/flutter with RVR -LV systolic dysfunction (LVEF: 40-45% by echo done 07/12/2024) -Moderate aortic stenosis (PV: 2.8 m/sec, M mmHg) by echo done 07/12/2024 -Pulmonary hypertension (PASP: 56 mmHg) -HTN -HLP -Hyperbilirubinemia -Obesity s/p gastric sleeve -Agent orange exposure Plan: 1. ACS-NSTEMI: Culprit hiaihz-17-07% stenosis in the proximal LAD s/p successful PCI with PTCA, balloon lithotripsy, and SANTHOSH placement ([employer] torito [place] 3.5 x 15 mm) in the proximal LAD done on 07/13/[address] Luis Reyez -Stable -The patient denies any chest pain, chest pressure, palpitations, or shortness of breath. -The above mentioned findings indicate clinical stability. As a result, the patient will continue on goal directed ACS therapy which includes aspirin 81 mg daily, clopidogrel 75 mg daily, carvedilol 12.5 mg BID, and atorvastatin 20 mg QHS. -The patient will remain on triple therapy (Xarelto, aspirin, and clopidogrel) for 1 month, then aspirin will be discontinued (08/12/2024). 2. Paroxysmal atrial fibrillation/flutter with RVR -Substrate: Dilated atria -12H telemetry: Atrial flutter, HR range: 70-94 bpm -Currently stable, asymptomatic, and in a controlled ventricular response -The patient will continue on carvedilol 12.5 mg BID -CHADS2 VASc score: 4 points. Continue Xarelto 20 mg daily. 3. LV systolic dysfunction (LVEF: 40-45% by echo done 07/12/2024) -Stable and without signs or symptoms suggestive of volume overload -The patient will continue on carvedilol 12.5 mg BID and spironolactone 50 mg daily -We will repeat a 2D echocardiogram in 3 months to reassess her systolic/diastolic function post PCI (~2024) 4. Moderate aortic stenosis (PV: 2.8 m/sec, M mmHg) by echo done 07/12/2024 -Stable -Continue carvedilol 12.5 mg BID and atorvastatin 20 mg QHS The patient can be discharged from a Cardiac Standpoint. Please have the patient follow up with Cardiology, Dr. Luis Reyez, 1-2 weeks after discharge. This case was discussed with my Supervising Physician, Dr. Luis Reyez, and the above mentioned plan was formulated and agreed upon. -Progress note written by Alva Roman, MSN, COST CLERK, AGACNP-BC ALVA ROMAN NP Jul 14, 2024 09:55
[2024-07-14 11:00] VITALS: BP 122/71; PULSE 78; RESP 20; TEMP 97.7
--- NOTE | 2024-07-14 12:52 | DS ---
Discharge Summary Hospital Course Summary: This is a 73-year-old male Arianna Monroy with a past medical history of hypertension, unknown type of heart failure, paroxysmal atrial fibrillation s/p successful cardioversion approximately 10 years ago, chronic amiodarone treatment but discontinued 6m ago by the patient due to purple discoloration to BUE, cardiac stent to unknown artery greater than 15 years ago, exposure to agent orange in [place] and gastric sleeve surgery who presented to the ED by EMS after visiting the [facility] due to an abnormal EKG. During the course of the hospitalization, consultation with user experience lead requested, left heart catheterization done, with the following findings: Conclusion: 1. ACS-NSTEMI: Culprit tmyfyy-48-19% stenosis in the proximal LAD status post successful treatment with balloon angioplasty, balloon lithotripsy, and SANTHOSH placement (Medtronic torito [place] 3.5 x 15 mm) in the proximal LAD. The stent was post dilated with a noncompliant balloon achieving optimal results. 2. Patent stent with 30% ISR in the mid LAD 3. Nonobstructive CAD (mid to distal LAD, ostial and mid LCX, and mid RCA) 4. Paroxysmal atrial fibrillation with RVR 5. Left ventricle systolic dysfunction (LVEF 40-45% by echocardiogram done on 07/12/2024) At the time of my visit today the patient is hemodynamically stable, afebrile, saturating normal on room air, he denies dizziness, no headache, no chest pain, no shortness a breath, no nausea, no vomiting, no abdominal discomfort, no diarrhea, no constipation, no melena, hematochezia, no hematemesis, no hematuria, no dysuria. PHYSICAL EXAM GENERAL APPEARANCE: The patient is awake, alert, and oriented, in no acute cardiopulmonary distress. NEUROLOGICAL: Cranial nerves II-XII grossly intact. Motor is 5/5 in bilateral upper and lower extremities proximal to distal. No sensory deficits. HEENT: Face is symmetric. Pupils are equal and reactive. Extraocular movements are intact. NECK: Supple. No JVD. No thyromegaly. No submental, submandibular, pre- /postauricular, occipital or supraclavicular lymphadenopathy. CHEST: Normal chest expansion. No Telemetry. LUNGS: Absence of any rales, rhonchi or any wheezing. CARDIOVASCULAR: Regular. S1 and S2 normal. No appreciable rubs, murmurs or gallops. ABDOMEN: Soft, nontender, and nondistended. There is no rebound, voluntary guarding, or rigidity. : Deferred. No Lee. EXTREMITIES: Non-edematous and not cyanotic. No clubbing. Good capillary refill. SKIN: No skin breakdown. [place] Department Supervisor(s): Cardiology Procedure(s): PROCEDURE NOTE Name: MADISON MILTON Acct: [id number] MR: [id number] : 1950 Admit Date: 07/11/24 LUIS BRANHAM MD [facility] [address] [place] [id number] PROCEDURE NOTE Indications: ACS-NSTEMI CAD status post PCI with SANTHOSH placement to the LAD Paroxysmal atrial fibrillation with RVR Left ventricle systolic dysfunction (LVEF 40-45% by echocardiogram done on 07/12/2024) Procedures: Coronary angiogram, PCI with balloon angioplasty, balloon lithotripsy, and SANTHOSH placement in the LAD, IVUS assessment of the LAD Introduction: After informed written consent was obtained, the patient was brought to the Catheterization Lab in the usual fasting state. Following sterile prep and drape, a time out was performed, then moderate sedation was administered, 1mg of Versed and 50mcg of Fentanyl, then 1% Lidocaine was infiltrated into the right femoral groin. Using a Modified Seldinger technique, a 6Fr Sheath was inserted into the right common femoral artery. While under fluoroscopic guidance, diagnostic coronary catheters were advanced over a wire into the central circulation where they were aspirated, flushed and placed to pressure monitoring, once the wire was removed. Coronary Angio: The left and right coronary arteries were engaged with appropriate catheters and angiography was performed under continuous pressure monitoring. Cardiac Findings: Right dominant system LM: Large caliber vessel with mild luminal irregularities. The vessel bifurcates into the LAD and LCX. LAD: Large caliber vessel with 80-90% stenosis in the proximal LAD. There is a patent stent in the mid LAD. There was 30% ISR seen within the stent. 40% stenosis in the mid to distal LAD. GHASSAN three blood flow distally Diagonal 1: Medium caliber vessel with mild luminal irregularities. Diagonal 2: Medium caliber vessel with mild luminal irregularities. LCx: Medium caliber vessel with 30% stenosis in the ostial and mid LCX. The rest of the vessel has mild luminal irregularities OM1: Medium caliber vessel with mild luminal irregularities. RCA: Large caliber vessel with diffuse 30% stenosis in the mid RCA. The rest of the vessel has mild luminal irregularities RPDA: Medium caliber vessel with mild luminal irregularities. RPLV: Medium caliber vessel with mild luminal irregularities Medications given: Versed 2mg, Fentanyl 25mcg, heparin 5000 units x 1 dose, clopidogrel 300 mg x 1 dose Coronary Intervention: Guide catheter: JL4 Guidewire: 0.014 run-through guidewire After reviewing the above-mentioned findings the decision was made to intervene on the LAD. The patient was administered heparin 75 units/kg and clopidogrel 300 mg x 1 dose. We then advanced the JL4 guide catheter and 0.014 run-through guidewire into the ostium of the left main. We then advanced the 0.014 run- through guidewire across the areas stenosis and into the distal LAD. We then performed balloon angioplasty (2.5 x 12 mm), balloon lithotripsy (shockwave 3.5 x 12 mm) in the proximal LAD. We then performed IVUS assessment of the LAD which appropriately sized the proximal LAD. We then performed successful SANTHOSH placement (Medtronic torito [place] 3.5 x 15 mm) in the proximal LAD. The stent was post dilated with a 4.0 x 8 mm noncompliant balloon achieving optimal results. Repeat angiography then revealed a widely patent stent in the proximal LAD and GHASSAN three blood flow distally. The 0.014 run-through guidewire and JL4 guide catheter were then removed. The patient tolerated the procedure well and without issue. Complications: None Conscious Sedation Monitoring: Under my direct order and supervision, medication for moderate conscious sedation was administered by the nursing staff and the patients level of consciousness and physiological status was monitored by an independent trained nurse. Closure of Access Site: After the case completed the sheath was pulled and a 6Fr Angioseal was deployed in the right common femoral artery without complication. Conclusion: 1. ACS-NSTEMI: Culprit quuiui-82-82% stenosis in the proximal LAD status post successful treatment with balloon angioplasty, balloon lithotripsy, and SANTHOSH placement (Medtronic torito [place] 3.5 x 15 mm) in the proximal LAD. The stent was post dilated with a noncompliant balloon achieving optimal results. 2. Patent stent with 30% ISR in the mid LAD 3. Nonobstructive CAD (mid to distal LAD, ostial and mid LCX, and mid RCA) 4. Paroxysmal atrial fibrillation with RVR 5. Left ventricle systolic dysfunction (LVEF 40-45% by echocardiogram done on 07/12/2024) Recommendation: 1. Continue goal-directed medical therapy 2. Stop heparin IV drip. Start Xarelto 20 mg daily. The patient will continue on aspirin 81 mg daily and clopidogrel 75 mg daily. The patient will be on triple therapy for one month and then aspirin will be discontinued 3. Groin precautions 4. 4 hours of bedrest 5. Start NS at 100 mL/hour x3 hours 6. No driving for the next 48 hours 7. 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 Luis Branham as an outpatient in one week, and to return to hospital if his condition changes. Patient to take aspirin 81 mg p.o. daily, Plavix 75 mg p.o. daily and Xarelto 20 mg p.o. daily. After one month to stop aspirin. This has been discussed in detail with the patient, in front of the nurse that is taking care of the patient. Patient agreed with the plan understood the information provided. Was advised to return to the hospital if his condition changes. Home Medications: Active Scripts Nitroglycerin (Nitroglycerin) 0.4 Mg Tab.subl, 1 TAB SL AD for chest pain, #25 TAB 1 Refill 1st sign of attack; may repeat every 5 mins; if pain persists after 3 in 15 min, medical attention is recommended Prov:JUAN RAMON HIGHTOWER MD 07/14/24 Spironolactone (Spironolactone) 25 Mg Tablet, 50 MG PO DAILY for 30 Days, #30 TAB 1 Refill Prov:JUAN RAMON HIGHTOWER MD 07/14/24 Rivaroxaban (Xarelto) 20 Mg Tablet, 20 MG PO DAILY17 for 30 Days, #30 TAB 1 Refill Prov:JUAN RAMON HIGHTOWER MD 07/14/24 Clopidogrel Bisulfate (Plavix) 75 Mg Tablet, 75 MG PO DAILY for 30 Days, #30 TAB 1 Refill Prov:JUAN RAMON HIGHTOWER MD 07/14/24 Carvedilol (Coreg) 12.5 Mg Tablet, 12.5 MG PO BID for 30 Days, #60 TAB 1 Refill Prov:JUAN RAMON HIGHTOWER MD 07/14/24 Aspirin (ASPIRIN 81MG CHEW TAB) 81 Mg Tab.chew, 81 MG PO DAILY for 30 Days, #30 TAB.CHEW 0 Refills Prov:JUAN RAMON HIGHTOWER MD 07/14/24 Reported Medications Aspirin (Aspirin) 81 Mg Tab.chew, 81 MG PO DAILY, TAB.CHEW 07/12/24 Atorvastatin Calcium (Atorvastatin Calcium) 20 Mg Tablet, 20 MG PO DAILY, TAB 07/12/24 Spironolactone (Spironolactone) 50 Mg Tablet, 50 MG PO DAILY, TAB 07/12/24 Discontinued Reported Medications Furosemide (Furosemide) 20 Mg Tablet, 20 MG PO [id number] PRN for EDEMA, TAB 07/12/24 Carvedilol (Carvedilol) 6.25 Mg Tablet, 6.25 MG PO BID, TAB 07/12/24 Amiodarone HCl (Pacerone) 200 Mg Tablet, 200 MG PO DAILY, TAB 07/12/24 Time spent arranging discharge: 31-60 minutes JUAN RAMON HIGHTOWER MD Jul 14, 2024 12:52
== END 2024-07-14 13:30 | disposition home or self-care (01) | DRG 323 ==
LOC: EDH 13:51 → EDHIP 16:30 → 2DH 22:05
PROVIDERS: ADMIT Internal Medicine; ATTEND Internal Medicine
PROC: 4A023N7 Measurement of Cardiac Sampling and Pressure, Left Heart, Percutaneous Approach (ICD-10-PCS; principal; 2024-07-13)
PROC: 02F03ZZ Fragmentation in Coronary Artery, One Artery, Percutaneous Approach (ICD-10-PCS; 2024-07-13)
PROC: 027034Z Dilation of Coronary Artery, One Artery with Drug-eluting Intraluminal Device, Percutaneous Approach (ICD-10-PCS; 2024-07-13)
PROC: B2111ZZ Fluoroscopy of Multiple Coronary Arteries using Low Osmolar Contrast (ICD-10-PCS; 2024-07-13)
PROC: B240ZZ3 Ultrasonography of Single Coronary Artery, Intravascular (ICD-10-PCS; 2024-07-13)
DX: T82.855A Stenosis of coronary artery stent, initial encounter (principal); I21.4 Non-ST elevation (NSTEMI) myocardial infarction; I48.92 Unspecified atrial flutter; I50.42 Chronic combined systolic (congestive) and diastolic (congestive) heart failure; I11.0 Hypertensive heart disease with heart failure; I48.0 Paroxysmal atrial fibrillation; E66.9 Obesity, unspecified; E78.5 Hyperlipidemia, unspecified; I07.1 Rheumatic tricuspid insufficiency; I25.10 Atherosclerotic heart disease of native coronary artery without angina pectoris; I27.20 Pulmonary hypertension, unspecified; E80.6 Other disorders of bilirubin metabolism; I35.0 Nonrheumatic aortic (valve) stenosis; I25.2 Old myocardial infarction; Z79.01 Long term (current) use of anticoagulants; Z79.02 Long term (current) use of antithrombotics/antiplatelets; Z79.82 Long term (current) use of aspirin; Z79.899 Other long term (current) drug therapy; Z80.1 Family history of malignant neoplasm of trachea, bronchus and lung; Z98.84 Bariatric surgery status; Z68.32 Body mass index [BMI] 32.0-32.9, adult; Y83.1 Surgical operation with implant of artificial internal device as the cause of abnormal reaction of the patient, or of later complication, without mention of misadventure at the time of the procedure; Y92.89 Other specified places as the place of occurrence of the external cause
CPT/HCPCS: 36415; 71045; 80048; 80053; 80305; 81003; 82550; 83735; 83880; 84443; 84484; 85025; 85027; 85610; 85730; 92972; 92978; 93005; 93306; 93454; 96372; 99156; 99157; 99291; C1760; C1887; C1894; C9600; G0378; J1644; J2250; J3010; J3490; Q9967; C1725; C1753; C1761; C1769; C1874; Q9965